=== PATIENT | female | born 1940 | race Two or more races ===

== ENCOUNTER 2021-07-01 12:37 | Inpatient (IN) | payer MEDICARE, OTHER ==
[~2021-07-01] VITALS: Ht 167.6 cm; Wt 62.1 kg
--- NOTE | 2021-07-01 12:50 | NUR ---
RN NOTE- PT BROUGHT TO UNIT FOR ADMISSION.
[2021-07-01] MEDS ORDERED: OLANZAPINE 10 MG VIAL IM ONE (13:08)
--- NOTE | 2021-07-01 13:10 | NUR ---
RN NOTE- PT AGITATED, CONFUSED, OPPOSITIONAL TO ADMISSION. BP- 212/122, REFUSING CARE. VALENTE LEYVA NOTIFIED. ZYPREXA 10 MG IM X ONCE STAT ORDERED.
--- NOTE | 2021-07-01 13:38 | NUR ---
RN NOTE- PT CALMED DOWN W CONTINUED REDIRECTION THOUGH REMAINS TEARFUL AND CONFUSED. WILL TAKE PO RX. VALENTE LEYVA ORDERED CLONIDINE 0.1 MG PO X ONE DOSE.
[2021-07-01] MEDS ORDERED: CLONIDINE HCL 0.1 MG TABLET PO STA (13:39)
--- NOTE | 2021-07-01 13:50 | NUR ---
SERVICE STATION CASHIER NOTE- PT ADMITTED TO GPS FOR GRAVELY DISABLED. PT STRUCK SPOUSE AT HOME AND HAS BEEN FOUND TO BE CONFUSED AND UNABLE TO [place]TE FOR SELF OR CONTRACT FOR SAFETY. VS- BP- 212/102, HR- 84, RR- 20, T- 98.6, 99% SATS ON RA . PT TEARFUL, CONFUSED AND WANDERING UNIT . DIRECTABLE W FIRM BOUNDARIES AND FREQUENT REDIRECTION. SKIN TEAR TO LT HAND. PHOTOS TAKEN FOR CHART. PT TOOK CLONIDINE 0.1 MG FOR BP. ACCU-CHECK BS- 178. PT POOR HISTORIAN, REVIEWED CHART FOR PMHX. MD AWARE OF ADMISSION, REORIENTED , REDIRECTED, SAFETY PRECAUTIONS IN PLACE. MONITOR/ ASSIST
[2021-07-01] MEDS ORDERED: BLOOD SUGAR DIAGNOSTIC 1 EACH STRIP IN ONE (14:00)
[2021-07-01] MEDS ORDERED: MAG HYDROX/AL HYDROX/SIMETH 30 ML UDC PO PRN (14:00)
--- NOTE | 2021-07-01 14:00 | NUR ---
RN NOTE- BP- 148/81 HR- 68
--- NOTE | 2021-07-01 14:03 | NUR ---
JONATHAN Initial Discharge Plan: Patient currently resides at [address] [place] [address] [place] [address];([phone]). Patient lives with her James ([phone]) and would want to return back home. JONATHAN will work with the MD, family, and treatment team to help coordinate appropriate discharge.
--- NOTE | 2021-07-01 14:03 | NUR ---
Clinical Social Work Note: Patient placed on a hold for 5150 due to danger to others and GD. Patient was violent towards at home. Patient currently resides at [address] [place] [address];([phone]). Patient lives with her James ([phone]) and would want to return back home.
--- NOTE | 2021-07-01 14:04 | NUR ---
Social Work Note/Substance Abuse Intervention: Patient was provided with a brief substance abuse intervention and referred to [facility] ([phone]), [facility] ([phone]), and [facility] ([phone]) for drinking wine everyday.
--- NOTE | 2021-07-01 14:18 | NUR ---
RN NOTE- ACCU-CHECK BS 178
--- NOTE | 2021-07-01 14:39 | NUR ---
JONATHAN Family Contact: JONATHAN contacted pt's James ([phone]) and notified of patient's admission. JONATHAN also spoke with pt's daughter Cristina ([phone]) and discussed treatment/discharge plan. She did report that she is the DPOA and will send documents to this food writer. Daughter reported that she will leave town to [place] for 3 years and cannot be involved in pt's care. She reported that her father is 90 year old and cannot take care of pt at home and that pt will need a nursing facility.
[2021-07-01 16:00] VITALS: BP 116/70
--- NOTE | 2021-07-01 16:15 | NUR ---
DPOA: JONATHAN received DPOA document from daughter Cristina ([phone]). SW placed it in patient's chart.
--- NOTE | 2021-07-01 19:20 | NUR ---
GPS RN OPENING NOTES: RECEIVED PATIENT PACING IN HALLWAY. A/O X1-2. BLUNTED AFFECT, LABILE, RESTLESS, ANXIOUS, LOOSE ASSOCIATIONS, DISORGANIZED, CONFUSED AT TIMES. DENIES SI/HI AT THIS TIME. DENIES PAIN AT THIS TIME. NO S/S OF DISTRESS. RESPIRATION EVEN AND UNLABORED WITH EQUAL RISE AND FALL OF THE CHEST, ON ROOM AIR. OFFERED FLUID AND SNACKS TOLERATED. BED IN LOW LOCKED POSITION, SIDE RAILS UP X2 FOR SAFETY, CALL LESTER WITHIN REACH. WILL CONTINUE TO MONITOR Q15 FOR MOOD, SAFETY AND BEHAVIOR.
[2021-07-01 20:03] VITALS: BP 146/76
[2021-07-01] MEDS: RIVASTIGMINE TARTRATE 1.5 MG CAPSULE PO SCH (21:00)
[2021-07-01] MEDS ORDERED: MAGNESIUM HYDROXIDE 30 ML UDC PO PRN (21:00)
--- NOTE | 2021-07-01 22:02 | NUR ---
GPS RN NOTES: PATIENT REFUSED 2100 EXELON 1.5MG 1 TAB PO ORDERED.
[2021-07-01] MEDS: TEMAZEPAM 15 MG CAPSULE PO PRN (22:45)
--- NOTE | 2021-07-01 22:46 | NUR ---
GPS RN NOTES: RESTORIL 15MG GIVEN PO AT 2245. WILL CONTINUE TO MONITOR.
--- NOTE | 2021-07-02 05:48 | NUR ---
GPS RN NOTES: PATIENT REFUSED MRSA.
--- NOTE | 2021-07-02 06:33 | NUR ---
GPS RN NOTES: PER PATIENT DAUGHTER GALI, PATIENT IS FULLY VACCINATED WITH MODERNA. FIRST DOSE 05/17/20, SECOND DOSE 06/04/20.
[2021-07-02 07:12] LABS: ALBUMIN 3.6 g/dL (3.4-5.0); BILIRUBIN,TOTAL 0.6 mg/dL (0.2-1.0); CALCIUM, SERUM 9.1 mg/dL (8.5-10.1); CREATININE 0.7 mg/dL (0.6-1.3); POTASSIUM 3.6 mmol/L (3.5-5.1); TOTAL PROTEIN, SERUM 6.4 g/dL (6.4-8.2)
[2021-07-02 07:53] LABS: CHOLESTEROL 185 mg/dL (<200); HDL CHOLESTEROL 82 mg/dL (40-60); LDL 96 mg/dL (0-99); TRIGLYCERIDES 57 mg/dL (30-150)
[2021-07-02 08:00] VITALS: BP 120/71
[2021-07-02] MEDS ORDERED: ATEN25TA PO (09:05)
[2021-07-02] MEDS ORDERED: QUET25TA PO (09:05)
[2021-07-02] MEDS: RIVASTIGMINE TARTRATE 1.5 MG CAPSULE PO SCH ×2 (09:09→20:47)
[2021-07-02] MEDS: DIVALPROEX SODIUM 125 MG CAP.SPRINK PO SCH ×2 (09:09→20:47)
[2021-07-02] MEDS ORDERED: INSULIN REGULAR, HUMAN 100 UNIT/ML 3 ML VIAL SQ PRN (11:30)
[2021-07-02] MEDS ORDERED: DEXTROSE 50%-WATER 50 ML DISP.SYRIN IV PRN (11:30)
[2021-07-02] MEDS ORDERED: BLOOD SUGAR DIAGNOSTIC 1 EACH STRIP IN SCH (12:00)
--- NOTE | 2021-07-02 15:34 | NUR ---
Individual Counseling: JONATHAN met with pt. in the hallway. The pt. is alert & oriented x 2. The pt. is confused with poor memory and fixated on her 5150 hold. Pt. is looking for her purse SW redirected pt. into her room and informed her that her belongings are being kept safe. Pt. appears unkempt and encouraged pt. to practice self-grooming and shower. Pt. verbalized that she would shower.
[2021-07-02] MEDS: LORAZEPAM 1 MG TABLET PO PRN (15:52)
--- NOTE | 2021-07-02 15:58 | NUR ---
RN-NOTES NOTED PATIENT PACING IN THE UNIT FOCUS ON GOING HOME,CRYING,REDIRECTED AND REORIENTED PATIENT. ATIVAN 1MG P.O GIVEN PRN ORDER. WILL CONT. MONITORING FOR SAFETY AND BEHAVIOR.
[2021-07-02 16:00] VITALS: BP 163/93
--- NOTE | 2021-07-02 16:55 | NUR ---
RN-NOTES PATIENT SLEEPING IN THE DAY ROOM SITTING IN THE CHAIR AWAKE,ALERT X2 ,CALM,NO ACUTE DISTRESS NOTED.
[2021-07-02] MEDS: METFORMIN 500 MG TABLET PO SCH (17:13)
[2021-07-02] MEDS: hydrALAZINE HCL 25 MG TABLET PO PRN (17:15)
--- NOTE | 2021-07-02 17:50 | NUR ---
RN-NOTES PATIENT STANDING IN THE HALLWAY,A/O X2,FORGETFUL, GUARDED,QUIET,NO ACUTE DISTRESS NOTED.NEED FREQUENT REDIRECTIONS.COMPLIANT WITH MEDICATIONS. AMBULATORY STEADY GAIT.PATIENT FOCUS ON HIS PURSE AND KEYS.REASSURED AND REORIENTED PATIENT. ALL NEEDS ATTENDED AND ANTICIPATED. PATIENT REFUSED TO SHOWER THIS SHIFT.WILL CONT.MONITORING FOR SAFETY AND BEHAVIOR.WILL ENDORSE TO INCOMING NURSE FOR CONTINUITY OF CARE.
[2021-07-02 20:00] VITALS: BP 128/78
[2021-07-02] MEDS: TEMAZEPAM 15 MG CAPSULE PO PRN (21:54)
[2021-07-03 08:00] VITALS: BP 190/96
--- NOTE | 2021-07-03 08:13 | NUR ---
SNF Referral: JONATHAN sent clinicals to [facility] to [facility] admin for possible placement. SW sent H & P, progress notes, and medication list.
[2021-07-03] MEDS: METFORMIN 500 MG TABLET PO SCH ×2 (08:23→16:32)
[2021-07-03] MEDS: RIVASTIGMINE TARTRATE 1.5 MG CAPSULE PO SCH ×2 (08:23→21:38)
[2021-07-03] MEDS: DIVALPROEX SODIUM 125 MG CAP.SPRINK PO SCH ×2 (08:23→21:38)
[2021-07-03] MEDS: ATENOLOL 25 MG TABLET PO SCH (08:24)
[2021-07-03] MEDS: AMLODIPINE BESYLATE 10 MG TABLET PO SCH (08:27)
[2021-07-03] MEDS: LORAZEPAM 1 MG TABLET PO PRN ×2 (09:55→19:58)
--- NOTE | 2021-07-03 09:56 | NUR ---
RN-NOTES NOTED PATIENT PACING IN THE UNIT CRYING, FOCUS ON GOING HOME,CRYING,REDIRECTED AND REORIENTED PATIENT. ATIVAN 1MG P.O GIVEN PRN ORDER. WILL CONT. MONITORING FOR SAFETY AND BEHAVIOR.
--- NOTE | 2021-07-03 11:00 | NUR ---
RN-NOTES PATIENT IN THE DAY ROOM AWAKE,ALERT ,CALM NO ACUTE DISTRESS NOTED.
[2021-07-03 16:00] VITALS: BP 106/58
--- NOTE | 2021-07-03 17:51 | NUR ---
RN-NOTES PATIENT SITTING IN HER BED CALM,QUIET A/O X2,NOTED WITH EPISODE OF CRYING ,FORGETFUL, GUARDED. NO ACUTE DISTRESS NOTED.NEED FREQUENT REDIRECTIONS AND REASSURANCE.COMPLIANT WITH MEDICATIONS. AMBULATORY STEADY GAIT. ALL NEEDS ATTENDED AND ANTICIPATED. PATIENT SHOWER TODAY.WILL CONT.MONITORING FOR SAFETY AND BEHAVIOR.WILL ENDORSE TO INCOMING NURSE FOR CONTINUITY OF CARE.
--- NOTE | 2021-07-03 19:58 | NUR ---
GPS RN NOTE: ANXIETY PATIENT IS ANXIOUS, RESTLESS, CRYING, PER PATIENT SHE NEEDS SOMETHING TO RELAX. PRN ATIVAN 1 MG PO ADMINISTERED. VITALS ARE STABLE AT THIS TIME. WILL CONTINUE TO MONITOR FOR ANY CHANGES.
[2021-07-03 20:00] VITALS: BP 110/91
[2021-07-04 08:00] VITALS: BP 151/75
[2021-07-04] MEDS: METFORMIN 500 MG TABLET PO SCH ×2 (08:40→16:42)
[2021-07-04] MEDS: DIVALPROEX SODIUM 125 MG CAP.SPRINK PO SCH ×2 (08:40→20:32)
[2021-07-04] MEDS: RIVASTIGMINE TARTRATE 1.5 MG CAPSULE PO SCH ×2 (08:40→20:32)
[2021-07-04] MEDS: AMLODIPINE BESYLATE 10 MG TABLET PO SCH (08:41)
[2021-07-04] MEDS: ATENOLOL 25 MG TABLET PO SCH (08:41)
--- NOTE | 2021-07-04 09:49 | NUR ---
Form: SW sent authorization form to pt's DPOA daughter Cristina ([phone]) and she will attempt to send it back signed by today.
--- NOTE | 2021-07-04 09:52 | NUR ---
JERILYN: JONATHAN spoke with pt's daughter JERILYN Evans ([phone]) she reported that she will be out of country next week and that her family will be involved in the care. She requested that she does want pt to go to a nursing facility.
--- NOTE | 2021-07-04 11:24 | NUR ---
Court Notification: SW contacted pt's DPGOLRY Evans daughter ([phone]) to notify of pt's 8824 hearing today.
--- NOTE | 2021-07-04 14:41 | NUR ---
Court Hearing: Patient's court hearing for 9076 was today and it was up held for GD.
[2021-07-04 16:00] VITALS: BP 149/81
[2021-07-04] MEDS: LORAZEPAM 1 MG TABLET PO PRN (16:42)
--- NOTE | 2021-07-04 16:42 | NUR ---
RN-NOTES NOTED PATIENT PACING IN THE UNIT FOCUS ON HER KEYS AND PURSE,CRYING,. REASSURED, REDIRECTED AND REORIENTED PATIENT. ATIVAN 1MG P.O GIVEN PRN ORDER. WILL CONT. MONITORING FOR SAFETY AND BEHAVIOR
--- NOTE | 2021-07-04 17:14 | NUR ---
RN-NOTES PATIENT SITTING IN HER BED , A/O X2,NOTED WITH EPISODE OF CRYING ,FORGETFUL, GUARDED. NO ACUTE DISTRESS NOTED.NEED FREQUENT REDIRECTIONS AND REASSURANCE.COMPLIANT WITH MEDICATIONS. AMBULATORY STEADY GAIT. ALL NEEDS ATTENDED AND ANTICIPATED. WILL CONT.MONITORING FOR SAFETY AND BEHAVIOR.WILL ENDORSE TO INCOMING NURSE FOR CONTINUITY OF CARE.
[2021-07-04 19:53] VITALS: BP 119/57
[2021-07-04 20:26] VITALS: BP 119/57
[2021-07-05 08:00] VITALS: BP 153/76
[2021-07-05] MEDS: DIVALPROEX SODIUM 125 MG CAP.SPRINK PO SCH ×2 (08:26→21:25)
[2021-07-05] MEDS: METFORMIN 500 MG TABLET PO SCH ×3 (08:26→17:34)
[2021-07-05] MEDS: RIVASTIGMINE TARTRATE 1.5 MG CAPSULE PO SCH ×3 (08:26→21:25)
[2021-07-05] MEDS: AMLODIPINE BESYLATE 10 MG TABLET PO SCH (08:26)
[2021-07-05] MEDS: ATENOLOL 25 MG TABLET PO SCH (08:27)
[2021-07-05] MEDS: LORAZEPAM 1 MG TABLET PO PRN ×2 (14:26→20:27)
--- NOTE | 2021-07-05 14:28 | NUR ---
given ativan for agitation.
[2021-07-05 16:00] VITALS: BP 142/73
--- NOTE | 2021-07-05 18:14 | NUR ---
continue to reorient to time and place.
[2021-07-05 20:10] VITALS: BP 155/86
[2021-07-05 20:23] VITALS: BP 155/86
--- NOTE | 2021-07-05 20:29 | NUR ---
GPS RN NOTE: ANXIETY/AGITATION PATIENT IS ANXIOUS, RESTLESS, CRYING, AGITATED. PATIENT IS UNABLE TO RELAX WITH REDIRECTIONS. PRN ATIVAN 1 MG PO ADMINISTERED. WILL CONTINUE TO MONITOR CLOSELY FOR ANY CHANGE OF CONDITION.
[2021-07-06 06:58] LABS: BASOPHILS % (AUTO) 0.9 % (0.0-2.0); EOSINOPHILS % (AUTO) 2.2 % (0.0-6.0); HEMATOCRIT 39 % (33-45); HEMOGLOBIN 13.1 g/dL (11.5-14.8); LYMPHOCYTES # (AUTO) 1.2 K/uL (0.8-4.8); LYMPHOCYTES % (AUTO) 25.9 % (20.0-44.0); MEAN CORPUSCULAR HGB CONC 33 g/dl (31.0-36.0); MEAN CORPUSCULAR VOLUME 94 fL (82-100); MONOCYTES # (AUTO) 0.4 K/uL (0.1-1.30); MONOCYTES % (AUTO) 9.2 % (2.0-12.0); NEUTROPHILS # (AUTO) 2.8 K/uL (1.8-8.9); NEUTROPHILS % (AUTO) 61.8 % (43.0-81.0); PLATELET COUNT (AUTO) 149 K/uL (150-450); RED BLOOD CELL COUNT(AUTO) 4.19 MIL/uL (4.0-5.2); WHITE BLOOD COUNT (AUTO) 4.5 K/uL (4.3-11.0)
[2021-07-06 07:41] LABS: ALBUMIN 3.3 g/dL (3.4-5.0); BILIRUBIN,TOTAL 0.5 mg/dL (0.2-1.0); CALCIUM, SERUM 8.9 mg/dL (8.5-10.1); CREATININE 0.8 mg/dL (0.6-1.3); POTASSIUM 3.9 mmol/L (3.5-5.1); TOTAL PROTEIN, SERUM 6.2 g/dL (6.4-8.2)
[2021-07-06 08:00] VITALS: BP 155/75
[2021-07-06] MEDS: RIVASTIGMINE TARTRATE 1.5 MG CAPSULE PO SCH ×2 (09:42→21:03)
[2021-07-06] MEDS: DIVALPROEX SODIUM 125 MG CAP.SPRINK PO SCH ×3 (09:43→21:03)
[2021-07-06] MEDS: AMLODIPINE BESYLATE 10 MG TABLET PO SCH (09:43)
[2021-07-06] MEDS: ATENOLOL 25 MG TABLET PO SCH (09:43)
[2021-07-06] MEDS: METFORMIN 500 MG TABLET PO SCH ×2 (09:43→17:19)
[2021-07-06] MEDS: LISINOPRIL (5MG) 5 MG TABLET PO SCH (12:00)
[2021-07-06 16:00] VITALS: BP 117/63
[2021-07-06 20:22] VITALS: BP 152/74
[2021-07-07 08:00] VITALS: BP 144/77
[2021-07-07] MEDS: DIVALPROEX SODIUM 125 MG CAP.SPRINK PO SCH ×3 (08:36→20:35)
[2021-07-07] MEDS: RIVASTIGMINE TARTRATE 1.5 MG CAPSULE PO SCH ×2 (08:50→20:35)
[2021-07-07] MEDS: LISINOPRIL (5MG) 5 MG TABLET PO SCH (08:52)
[2021-07-07] MEDS: METFORMIN 500 MG TABLET PO SCH ×2 (08:52→16:31)
[2021-07-07] MEDS: ATENOLOL 25 MG TABLET PO SCH (08:53)
[2021-07-07] MEDS: AMLODIPINE BESYLATE 10 MG TABLET PO SCH (08:54)
--- NOTE | 2021-07-07 11:13 | NUR ---
RN-CO: PATIENT IS ANXIOUS AND TEARFUL. AND BEHAVIOR. SHE HAS NO INSIGHT WHY SHE IS HERE. SHE IS LOOKING FOR HER BELONGINGS EVEN THOUGH WE EXPLAINED WHERE IS HER VALUABLES. SHE IS FORGETFUL. I WILL CONTINUE TO MONITOR AND ATTEND TO HER NEEDS.
[2021-07-07] MEDS: LORAZEPAM 1 MG TABLET PO PRN (11:56)
--- NOTE | 2021-07-07 11:56 | NUR ---
RN-CO: ATIVAN 1 MG PO GIVEN FOR ANXIETY MANIFESTED BY CRYING SPELLS.
[2021-07-07 16:00] VITALS: BP 138/77
[2021-07-07 19:44] VITALS: BP 140/65
[2021-07-07] MEDS: TEMAZEPAM 15 MG CAPSULE PO PRN (20:35)
[2021-07-08] MEDS: DIVALPROEX SODIUM 125 MG CAP.SPRINK PO SCH ×3 (07:46→21:29)
[2021-07-08 08:00] VITALS: BP 117/52
[2021-07-08] MEDS: METFORMIN 500 MG TABLET PO SCH ×2 (08:08→16:17)
[2021-07-08] MEDS: ATENOLOL 25 MG TABLET PO SCH (08:09)
[2021-07-08] MEDS: LISINOPRIL (5MG) 5 MG TABLET PO SCH (08:09)
[2021-07-08] MEDS: AMLODIPINE BESYLATE 10 MG TABLET PO SCH (08:10)
[2021-07-08] MEDS: RIVASTIGMINE TARTRATE 1.5 MG CAPSULE PO SCH ×2 (08:14→21:29)
--- NOTE | 2021-07-08 10:05 | NUR ---
RN-CO: PATIENT DENIED PAIN AND DISCOMFORTS. TOOK HER MEDICATIONS AND ATE WEEL. I ALSO OFFERED FLUIDS EVERY TIME. SHE NEEDS PROMPTS IN ADLS AND GROOMING. SHE IS LESS ANXIOUS AND TEARFUL THAN YESTERDAY. I WILL CONTINUE TO MONITOR.
[2021-07-08] MEDS: LORAZEPAM 1 MG TABLET PO PRN ×2 (10:22→16:10)
[2021-07-08] MEDS: ACETAMINOPHEN 325 MG TABLET PO PRN (10:22)
--- NOTE | 2021-07-08 10:24 | NUR ---
RN-CO: ATIVAN 1 MG PO GIVEN FOR ANXIETY AND TEARFULNESS.
--- NOTE | 2021-07-08 10:25 | NUR ---
RN-CO: TYLENOL 650 MG PO GIVEN FOR C/O HEADACHE 06/08.
[2021-07-08 16:00] VITALS: BP 142/75
--- NOTE | 2021-07-08 16:10 | NUR ---
RN-CO: ATIVAN 1 MG PO GIVEN FOR ANXIETY AND DEPRESSION. M/B CRYING SPELLS.
[2021-07-08 19:40] VITALS: BP 155/86
--- NOTE | 2021-07-08 19:41 | NUR ---
GPS RN OPENING NOTES: RECEIVED PATIENT AMBULATING IN HALLWAY, A/O 1-2. APPEARS DEPRESSED, WANDERING, TEARFUL, FORGETFUL, DISORGANIZED, CONFUSED. DENIES V/A HALLUCINATIONS AT THIS TIME. DENIES SI/HI AT THIS TIME. DENIES PAIN AT THIS TIME. NO S/S OF DISTRESS. RESPIRATION EVEN AND UNLABORED WITH EQUAL RISE AND FALL OF THE CHEST, ON ROOM AIR. OFFERED FLUID AND SNACKS TOLERATED. WILL CONTINUE TO MONITOR Q15 FOR MOOD, SAFETY AND BEHAVIOR.
[2021-07-08] MEDS: risperiDONE 0.25 MG TABLET PO SCH (21:29)
[2021-07-09 08:00] VITALS: BP 156/78
[2021-07-09] MEDS: METFORMIN 500 MG TABLET PO SCH ×2 (08:26→17:28)
[2021-07-09] MEDS: risperiDONE 0.25 MG TABLET PO SCH ×2 (08:26→21:01)
[2021-07-09] MEDS: RIVASTIGMINE TARTRATE 1.5 MG CAPSULE PO SCH ×2 (08:26→21:01)
[2021-07-09] MEDS: DIVALPROEX SODIUM 125 MG CAP.SPRINK PO SCH ×3 (08:27→21:01)
[2021-07-09] MEDS: AMLODIPINE BESYLATE 10 MG TABLET PO SCH (08:27)
[2021-07-09] MEDS: ATENOLOL 25 MG TABLET PO SCH (08:27)
[2021-07-09] MEDS: LISINOPRIL (5MG) 5 MG TABLET PO SCH (08:28)
--- NOTE | 2021-07-09 10:04 | NUR ---
SNF Referral: JONATHAN spoke with Adelita Jasso [facility] directly to [facility] admin who stated pt is accepted.
--- NOTE | 2021-07-09 10:04 | NUR ---
DPOA: SW spoke with pt's daughter JERILYN Evans ([phone]) and stated that pt is accepted at [facility] and she was agreeable with this. She stated pt cannot return back home due to not being able to provide care for the pt at home.
--- NOTE | 2021-07-09 10:04 | NUR ---
SNF Contact: JONATHAN spoke with Adelita Jasso [facility] directly to [facility] admin who stated pt is accepted.
--- NOTE | 2021-07-09 11:30 | NUR ---
APS Contact: SW received a call from Jessika CHARLES from [place] ([phone]) and left a voicemail that pt has a open case and would want to discuss pt's case. SW attempted to contact back, however, mailbox was full and SW was unable to leave a voicemail.
--- NOTE | 2021-07-09 13:51 | NUR ---
APS Contact: SW received a call from Jessika CHARLES from [place] ([phone]) (Office Number: [phone]) who stated pt has an open case and it is unsafe for her to go back home.
--- NOTE | 2021-07-09 15:58 | NUR ---
RN-NOTES PATIENT SITTING IN BED AWAKE,ALERT X1,NO ACUTE DISTRESS NOTED.AMBULATORY STEADY GAIT.PATIENT FOCUS ON GOING HOME WITH HER .EPISODE OF PACING IN THE HALLWAY. REDIRECTED AND REORIENTED PATIENT. ALL NEEDS ATTENDED AND ANTICIPATED. WILL CONT. MONITORING FOR SAFETY AND BEHAVIOR.
[2021-07-09 16:00] VITALS: BP 121/62
--- NOTE | 2021-07-09 19:32 | NUR ---
GPS RN OPENING NOTES: RECEIVED PATIENT AMBULATING IN HALLWAY, A/O 1-2. PATIENT IS FORGETFUL, DISORGANIZED, DISORIENTED, CONFUSED, CRYING INTERMITTENTLY, ENCOURAGED TO VERBALIZE FEELINGS. DENIES SI/HI AT THIS TIME. DENIES PAIN AT THIS TIME. NO S/S OF DISTRESS. RESPIRATION EVEN AND UNLABORED WITH EQUAL RISE AND FALL OF THE CHEST, ON ROOM AIR. OFFERED FLUID AND SNACKS TOLERATED. WILL CONTINUE TO MONITOR Q15 FOR MOOD, SAFETY AND BEHAVIOR.
[2021-07-09 20:00] VITALS: BP 161/76
[2021-07-09] MEDS: hydrALAZINE HCL 25 MG TABLET PO PRN (20:28)
--- NOTE | 2021-07-09 20:31 | NUR ---
GPS RN NOTES: HYDRALAZINE 25MG GIVEN PO PRN AT 2027. BP161/76, P77. WILL CONTINUE TO MONITOR.
--- NOTE | 2021-07-09 21:46 | NUR ---
GPS RN NOTES: CURRENT V/S BP142/73.
[2021-07-09] MEDS: risperiDONE 1 MG TABLET PO SCH (22:30)
--- NOTE | 2021-07-09 23:28 | NUR ---
GPS RN NOTES: PATIENT REFUSED 2230 RISPERIDONE 0.5MG ORDERED.
--- NOTE | 2021-07-09 23:29 | NUR ---
GPS RN NOTES: PATIENT OFFERED SLEEP MEDICATION RESTORIL 15MG D/T INSOMNIA BUT PATIENT REFUSED MEDICATION. RESTORIL 15MG 1 CAP RETURNED TO [facility] AND WITNESSED BY ANOTHER STAFF. WILL CONTINUE TO MONITOR PATIENT.
--- NOTE | 2021-07-09 23:40 | NUR ---
GPS RN NOTES: DR JORDAN CALLED JERILYN TALBERT REQUESTED BUT SHE DID NOT PICK SO AND LEFT A MESSAGE.
[2021-07-10 08:00] VITALS: BP 121/67
[2021-07-10] MEDS: RIVASTIGMINE TARTRATE 1.5 MG CAPSULE PO SCH ×2 (08:02→22:20)
[2021-07-10] MEDS: DIVALPROEX SODIUM 125 MG CAP.SPRINK PO SCH ×3 (08:02→22:20)
[2021-07-10] MEDS: METFORMIN 500 MG TABLET PO SCH ×2 (08:02→16:08)
[2021-07-10] MEDS: ATENOLOL 25 MG TABLET PO SCH (08:04)
[2021-07-10] MEDS: AMLODIPINE BESYLATE 10 MG TABLET PO SCH (08:04)
[2021-07-10] MEDS: LISINOPRIL (5MG) 5 MG TABLET PO SCH (08:04)
--- NOTE | 2021-07-10 09:35 | NUR ---
RN-CO: PATIENT IS VISIBLE IN THE UNIT, HAS CRYING SPELLS, FOCUS ON HER DISCHARGE. SHE IS ANXIOUS AND FORGETFUL. SHE DENIED PAIN. SHE NEEDS CONSKTANT REASSURANCE AND REDIRECTIONS.
[2021-07-10] MEDS: risperiDONE 1 MG TABLET PO SCH ×2 (10:20→22:20)
[2021-07-10] MEDS: ACETAMINOPHEN 325 MG TABLET PO PRN (10:26)
--- NOTE | 2021-07-10 10:26 | NUR ---
RN-CO: TYLENOL 650 MG PO GIVEN FOR KNEE PAIN 06/08.
[2021-07-10] MEDS: LORAZEPAM 1 MG TABLET PO PRN (12:41)
--- NOTE | 2021-07-10 12:42 | NUR ---
RN-CO: ATIVAN 1 MG PO GIVEN FOR RESTLESSNESS WITH CRYING SPELLS.
[2021-07-10 16:00] VITALS: BP 109/50
[2021-07-10 19:49] VITALS: BP 115/71
[2021-07-10 20:00] VITALS: BP 113/71
[2021-07-11 08:00] VITALS: BP 128/62
[2021-07-11] MEDS: METFORMIN 500 MG TABLET PO SCH ×2 (08:07→17:23)
[2021-07-11] MEDS: RIVASTIGMINE TARTRATE 1.5 MG CAPSULE PO SCH ×2 (08:07→21:20)
[2021-07-11] MEDS: ATENOLOL 25 MG TABLET PO SCH (08:08)
[2021-07-11] MEDS: AMLODIPINE BESYLATE 10 MG TABLET PO SCH (08:08)
[2021-07-11] MEDS: DIVALPROEX SODIUM 125 MG CAP.SPRINK PO SCH ×3 (08:09→21:20)
[2021-07-11] MEDS: LISINOPRIL (5MG) 5 MG TABLET PO SCH (08:09)
[2021-07-11] MEDS: risperiDONE 1 MG TABLET PO SCH ×2 (10:01→22:11)
--- NOTE | 2021-07-11 10:26 | NUR ---
JONATHAN Family Contact: JONATHAN spoke with patient's daughter JERILYN Evans ([phone]) who is aware that pt will dc 5/16 to [facility]. She is agreeable and stated that pt cannot come back home because it is not safe for her to go home.
[2021-07-11] MEDS: LORAZEPAM 1 MG TABLET PO PRN (12:59)
--- NOTE | 2021-07-11 13:02 | NUR ---
RN-NOTES NOTED PATIENT VERY ANXIOUS,PACING IN THE HALLWAY CRYING FOCUSING ON GOING HOME. REDIRECTED AND REORIENTED PATIENT. ATIVAN 1MG P.O GIVEN PRN ORDER. WILL CONT. MONITORING FOR SAFETY AND BEHAVIOR.
--- NOTE | 2021-07-11 14:00 | NUR ---
RN-NOTES PATIENT IN THE DAY ROOM SITTING IN THE CHAIR AWAKE,ALERT X2 ,CALM,NO ACUTE DISTRESS NOTED.
[2021-07-11 16:00] VITALS: BP 110/66
--- NOTE | 2021-07-11 17:46 | NUR ---
RN-NOTES PATIENT SITTING IN BED AWAKE,ALERT X1,NO ACUTE DISTRESS NOTED.AMBULATORY STEADY GAIT.PATIENT FOCUS ON GOING HOME .EPISODE OF PACING AND CRYING IN THE HALLWAY. REDIRECTED AND REORIENTED PATIENT. ALL NEEDS ATTENDED AND ANTICIPATED. WILL CONT. MONITORING FOR SAFETY AND BEHAVIOR.WILL ENDORSE TO INCOMING SHIFT FOR CONTINUITY OF CARE.
[2021-07-11 19:57] VITALS: BP 112/65
[2021-07-11 20:00] VITALS: BP 112/65
[2021-07-12] MEDS: DIVALPROEX SODIUM 125 MG CAP.SPRINK PO SCH ×3 (07:58→21:13)
[2021-07-12 08:00] VITALS: BP 128/64
[2021-07-12] MEDS: ATENOLOL 25 MG TABLET PO SCH (08:01)
[2021-07-12] MEDS: METFORMIN 500 MG TABLET PO SCH ×2 (08:01→17:05)
[2021-07-12] MEDS: RIVASTIGMINE TARTRATE 1.5 MG CAPSULE PO SCH ×2 (08:01→21:13)
[2021-07-12] MEDS: AMLODIPINE BESYLATE 10 MG TABLET PO SCH (08:01)
[2021-07-12] MEDS: LISINOPRIL (5MG) 5 MG TABLET PO SCH (08:02)
[2021-07-12] MEDS: risperiDONE 1 MG TABLET PO SCH ×2 (11:02→18:15)
[2021-07-12] MEDS: LORAZEPAM 1 MG TABLET PO PRN (14:14)
--- NOTE | 2021-07-12 14:19 | NUR ---
RN-NOTES PATIENT IN THE DAY ROOM NOTED PACING ,ANGRY AND CRYING, FOCUS ON GOING HOME,REDIRECTED AND REORIENTED PATIENT. ATIVAN 1MG P.O GIVEN PRN ORDER. WILL CONT. MONITORING FOR SAFETY AND BEHAVIOR.
--- NOTE | 2021-07-12 15:20 | NUR ---
RN-NOTES PATIENT IN THE DAY ROOM SITTING IN THE CHAIR AWAKE,ALERT X2 ,CALM, QUIET,NO ACUTE DISTRESS NOTED.
[2021-07-12 16:00] VITALS: BP 119/67
--- NOTE | 2021-07-12 17:31 | NUR ---
RN-NOTES PATIENT IN THE DAY ROOM SITTING IN CHAIR AWAKE,ALERT X1,NO ACUTE DISTRESS NOTED. AMBULATORY STEADY GAIT.PATIENT STILL FOCUS ON GOING HOME .EPISODE OF PACING IN THE HALLWAY AND CRYING. ABLE TO REDIRECT AND REORIENT PATIENT. ALL NEEDS ATTENDED AND ANTICIPATED. WILL CONT. MONITORING FOR SAFETY AND BEHAVIOR. WILL ENDORSE TO INCOMING SHIFT FOR CONTINUITY OF CARE.
[2021-07-13] MEDS: risperiDONE 1 MG TABLET PO SCH ×2 (06:08→17:11)
[2021-07-13 08:00] VITALS: BP 133/68
[2021-07-13] MEDS: DIVALPROEX SODIUM 125 MG CAP.SPRINK PO SCH ×3 (08:08→21:19)
[2021-07-13] MEDS: LISINOPRIL (5MG) 5 MG TABLET PO SCH (08:16)
[2021-07-13] MEDS: AMLODIPINE BESYLATE 10 MG TABLET PO SCH (08:17)
[2021-07-13] MEDS: METFORMIN 500 MG TABLET PO SCH ×2 (08:17→16:45)
[2021-07-13] MEDS: ATENOLOL 25 MG TABLET PO SCH (08:17)
[2021-07-13] MEDS: RIVASTIGMINE TARTRATE 1.5 MG CAPSULE PO SCH ×2 (08:49→21:19)
--- NOTE | 2021-07-13 09:09 | NUR ---
RN-CO:PATIENT IS AWAKE, IN THE NURSING STATION. SHE IS BETTER THAN LAST WEEK, LESS CRYING SPELLS. SHE NEEDS CONSTANT REDIRECTIONS.SHE DENIED PAIN AND DISCOMFORTS. I WILL CONTINUE TO MONITOR. NO EPISODE OF AGGRESSION NOTED.
[2021-07-13] MEDS: LORAZEPAM 1 MG TABLET PO PRN (13:48)
--- NOTE | 2021-07-13 13:48 | NUR ---
RN-CO: ATIVAN 1 MG PO GIVEN FOR ANXIETY.
[2021-07-13 16:00] VITALS: BP 105/62
--- NOTE | 2021-07-13 19:20 | NUR ---
GPS RN NOTES RECEIVED PATIENT IN BED AWAKE, ALERT AND ORIENTED X1, NO S/SX OF ACUTE DISTRESS NOTED. PATIENT REMAINS CONFUSED, DISORGANIZED, NEEDS CONSTANT REDIRECTIONS. REALITY ORIENTATION PROVIDED. SAFETY PRECAUTIONS IN PLACE. WILL CONTINUE TO MONITOR Q15MIN ROUNDS FOR SAFETY AND BEHAVIOR.
[2021-07-13 20:11] VITALS: BP 152/74
[2021-07-14] MEDS: risperiDONE 1 MG TABLET PO SCH (06:08)
[2021-07-14 08:00] VITALS: BP 115/52
[2021-07-14] MEDS: METFORMIN 500 MG TABLET PO SCH (08:40)
[2021-07-14] MEDS: RIVASTIGMINE TARTRATE 1.5 MG CAPSULE PO SCH (08:40)
[2021-07-14] MEDS: DIVALPROEX SODIUM 125 MG CAP.SPRINK PO SCH ×2 (08:40→12:01)
[2021-07-14] MEDS: AMLODIPINE BESYLATE 10 MG TABLET PO SCH (08:40)
[2021-07-14] MEDS: ATENOLOL 25 MG TABLET PO SCH (08:41)
[2021-07-14] MEDS: LISINOPRIL (5MG) 5 MG TABLET PO SCH (08:41)
--- NOTE | 2021-07-14 09:08 | NUR ---
Dicharge Note: Patient will be discharged to a [facility] located at [[address] [place] [address]; ([phone])] via ambulance transportation at 1 pm. Ethylene Oxide Panelboard OperatorEsther spoke with Yves, Assistant Professor Of German at [facility] ([phone]) stated patient will be accepted at facility today. Patient is alert and oriented x2, and is not able to plan for self-care at this time, but is willing to accept care provided for her at the facility. Patient denies any suicidal or homicidal ideations. Patient is aware and agreeable with discharge plans. Patients daughter Cristina JEAN-BAPTISTE, ([phone]) is aware and agreeable of discharge. Patient will continue to follow-up with her (Psychiatrist) Dr. Wang located at [address], [place] [address]; ([phone]) and (Airfield Services Officer) Dr. Mccray [address], [place] [address]; ([phone]).
[2021-07-14 11:58] VITALS: BP 117/55
--- NOTE | 2021-07-14 12:13 | NUR ---
GPS PLATFORM OPERATIONS DIRECTOR NOTE: PATIENT 80 Y/O FEMALE DISCHARGE TO [facility] LOCATED AT [address] [place] [address] PATIENT IN STABLE CONDITION NO S/S DISTRESS NOTED .PATIENT COOPERATIVE AND COMPLIANT WITH MEDICATIONS AND TX, CALM, CONFUSED, DISORGANIZED, PLEASANT AT APPROACH. PATIENT AMBULATORY WITH STEADY GAIT , FORGETFUL NEED REDIRECTIONS AND REMINDERS . PATIENT DENIES SI/HI/AVH INSTRUCTED TO GO TO THE CLOSEST ER IF DEVELOPING SI/HI. PATIENT BEHAVIOR IMPROVE TX PLAN MET. EXIT CARE DONE PRINTED, PATIENT REFUSED TO SIGN DC PAPERS DUE TO CONFUSION. REPORT GIVEN TO [facility] RN . BELONGINGS CHECKED AND RETURNED TO PT. SKIN INTACT DOCUMENTED IN THE [place].
== END 2021-07-14 13:25 | DRG 885 ==
LOC: GPS 12:39
PROVIDERS: ADMIT Psychiatry & Neurology Psychiatry; ATTEND Internal Medicine
DX: F39 Unspecified mood [affective] disorder (principal); F01.50 Vascular dementia, unspecified severity, without behavioral disturbance, psychotic disturbance, mood disturbance, and anxiety; E44.0 Moderate protein-calorie malnutrition; F29 Unspecified psychosis not due to a substance or known physiological condition; E88.09 Other disorders of plasma-protein metabolism, not elsewhere classified; R73.03 Prediabetes; I10 Essential (primary) hypertension; F41.9 Anxiety disorder, unspecified; Z91.19 Patient's noncompliance with other medical treatment and regimen; Z73.6 Limitation of activities due to disability; F25.9 Schizoaffective disorder, unspecified; Z68.22 Body mass index [BMI] 22.0-22.9, adult
CPT/HCPCS: 36415; 80053-TC; 80061-TC; 80164-TC; 82962-TC; 85025-TC; J3490